=== PATIENT | female | born 1945 | race Caucasian/White ===

== ENCOUNTER 2017-02-12 14:27 | Observation (INO) | payer MEDICARE, OTHER ==
[~2017-02-12] VITALS: Ht 160 cm; Wt 80.3 kg
[2017-02-12 14:51] LABS: HEMOGLOBIN 11.9 gm/dl (12.3-15.3); RED BLOOD COUNT 4.57 M/UL (4.00-5.10); WHITE BLOOD COUNT 9.1 K/UL (4.5-11.0)
[2017-02-12 15:20] LABS: BUN/CREATININE RATIO 16 (0-10)
[2017-02-12] MEDS ORDERED: CELEBREX200 MG PO (22:47)
[2017-02-12] MEDS ORDERED: SYNTHROID125 MCG PO (22:47)
[2017-02-12] MEDS ORDERED: METFORMIN HCL1000 M1 PO (22:48)
[2017-02-12] MEDS ORDERED: NEXIUM40 MG PO (22:48)
[2017-02-12] MEDS ORDERED: NEURONTIN 100100 MG PO (22:49)
[2017-02-12] MEDS ORDERED: LISINOPRIL10 MG PO (22:49)
[2017-02-13] MEDS ORDERED: ASPIR 8181 MG PO (20:48)
[2017-02-13] MEDS ORDERED: ANTIVERT 25MG T25 MG PO (20:49)
[2017-02-13] MEDS ORDERED: CEFUROXIME250 MG PO (20:54)
== END 2017-02-13 21:57 | disposition home or self-care (01) ==
LOC: ER1 14:27 → ZEROF 17:55 → MED SURG 4 17:55
PROVIDERS: Specialist/Technologist Athletic Trainer; ADMIT Family Medicine
DX: R07.9 Chest pain, unspecified (principal); R11.2 Nausea with vomiting, unspecified; I10 Essential (primary) hypertension; E11.9 Type 2 diabetes mellitus without complications; E03.9 Hypothyroidism, unspecified; N39.0 Urinary tract infection, site not specified; K21.9 Gastro-esophageal reflux disease without esophagitis; E78.5 Hyperlipidemia, unspecified; I25.2 Old myocardial infarction; Z86.69 Personal history of other diseases of the nervous system and sense organs; Z86.79 Personal history of other diseases of the circulatory system; Z79.82 Long term (current) use of aspirin; Z79.899 Other long term (current) drug therapy; Z88.8 Allergy status to other drugs, medicaments and biological substances; Z90.49 Acquired absence of other specified parts of digestive tract
CPT/HCPCS: ECHO; 36415; 71010; 80053; 80061; 81001; 82550; 82553; 82962; 83036; 83690; 83874; 84484; 85025; 85379; 87077; 87086; 87186; 93005; 93306; 96374; 99285; G0378; J0696; J2405; J7030